=== PATIENT | male | born 2000 | race Caucasian/White ===

== ENCOUNTER 2021-04-26 09:25 | Emergency (ER) | payer OTHER, SELFPAY ==
[2021-04-26 09:53] VITALS: BP 141/83; PULSE 66; RESP 16; TEMP 37.1; O2SAT 99; BMI 31.6
[2021-04-26 10:30] LABS: IDNOW Serial# 08D9AD1C; Strep A Nucleic Acid Negative (Negative)
[2021-04-26 10:31] LABS: COVID-19 Test Negative (Negative)
--- NOTE | 2021-04-26 11:09 | ED.URI ---
HPI - URI/Sore Throat General Chief Complaint: Upper Respiratory Symptoms Stated Complaint: sore throat/ear pain Time Seen by Provider: 04/26/21 11:09 Source: patient Mode of arrival: ambulatory History of Present Illness HPI Narrative: 21-year-old male with no significant past medical history presenting to ED complaining of sore throat and right ear pain yesterday. Denies fever, chills, cough, SOB, CP, recent travel, COVID-19 exposure MD elicited complaint: sore throat and rhinorrhea Onset (ago): day(s) Related Data Previous Rx's Medication Instructions Recorded amoxicillin 875 mg-potassium 1 tab PO Q12H 7 Days #14 tab 04/26/21 clavulanate 125 mg tablet (Augmentin) Allergies Allergy/AdvReac Type Severity Reaction Status Date / Time No Known Allergies Allergy Unverified 02/06/20 16:51 Review of Systems Review of Systems: Constitutional: No Fever, No Chills ENT/Mouth: + Ear Pain, No Nasal Congestion, No Sinus Pain, No Hoarseness, + sore throat, No Rhinorrhea, No Swallowing Difficulty Cardiovascular: No Chest Pain, No SOB Respiratory: No Cough, No Sputum, No Wheezing Gastrointestinal: No Nausea, No Vomiting, No Abdominal pain Genitourinary:No Urinary Frequency, No Hematuria Musculoskeletal: No joint pain, No Myalgias Skin: No Skin Lesions, No rash Neuro: No Weakness Yes all other systems are reviewed and are negative [facility] Past Medical History Attestation statement: The following information was validated with the patient. Medical History No known health problems Social History Social History Advance Directives: No Advance Directives Information Provided: No Physical Exam Vital Signs: Vital Signs: Last Vital Signs Temp 98.7 F 04/26/21 09:53 Pulse 66 04/26/21 09:53 Resp 16 04/26/21 09:53 BP 141/83 H 04/26/21 09:53 Pulse Ox 99 04/26/21 09:53 BMI result Body Mass Index 31.6 Const: General: cooperative, healthy appearing and no acute distress Orientation/consciousness: patient oriented x3 Limitations: no limitations HENMT: Head: Yes normal to inspection Ears: hearing grossly normal bilaterally, external ears normal, TM normal on the left and TM abnormal erythematous on the right General nose exam: Normal external nose present Face and sinus: Yes normal facial exam Mouth: Normal oral and palatal mucosa present Throat: Yes posterior oropharynx normal, Yes tonsils normal, Yes uvula midline and No peritonsillar mass Eyes: General: appearance normal, both eyes and all related structures EOM: EOMs intact bilaterally Neck: Neck: Yes normal visual inspection, Yes full ROM, Yes no lymphadenopathy, Yes no meningeal signs, Yes trachea midline and Yes supple Resp: Effort & Inspection: normal respiratory effort Auscultation: clear to auscultation bilaterally, no rales, no rhonchi and no wheezes Cardio: Rate: regular rate Heart sounds: S1 normal heart sound present and S2 normal heart sound present GI: Inspection: Yes normal to inspection Skin: Rashes: no rashes Wounds: no wounds Neuro: General: patient oriented x3 and no meningeal signs Gait exam (Neuro): Normal gait present Extrem: General: Yes normal to inspection Course Course Course Narrative: -COVID-19 and rapid strep negative MDM - URI/Sore Throat MDM Narrative Medical decision making narrative: 21-year-old male with no significant past medical history presenting to ED complaining of sore throat and right ear pain yesterday. On exam vital signs stable, NAD/nontoxic, right ear TM erythematous, mastoid WNL. Oropharynx WNL. Lungs CTA. Concern for viral syndrome/COVID-19 and early otitis media. Plan: COVID-19 testing, rapid strep, p.o. Augmentin Medical Records Attestation: I reviewed the patient's medical records. Lab Data Attestation: I reviewed the patient's lab results. Labs: Lab Results 04/26/21 04/26/21 Range/Units 09:56 09:56 COVID-19 ([facility]) Negative (Negative) COVID-19 Clin Com See Note S. pyogenes GrpA ELIESER Negative (Negative) Discharge Plan Discharge Clinical Impression: Otitis media Qualifiers: Chronicity: acute Laterality: right Patient Disposition: Home, Self-Care Instructions: Ear Infection (ED) Additional Instructions: You have an early inner ear infection, Augmentin as an antibiotic please take as prescribed. You tested negative for COVID-19, and strep throat Please take Tylenol and Motrin at home as needed Please stay hydrated Breast If symptoms persist or worsen, of fevers unresolved with medications please return to the emergency department Prescriptions: New amoxicillin-pot clavulanate [Augmentin] 875-125 mg tablet 1 tab PO Q12H 7 Days Qty: 14 RF: 0 Referrals: Physician,None [Primary Care Provider] - 3 days Stand Alone Forms: Work/School Release
== END 2021-04-26 11:19 | disposition home or self-care (01) ==
PROVIDERS: Emergency Provider Emergency Medicine
DX: H66.91 Otitis media, unspecified, right ear (principal); Z20.822 Contact with and (suspected) exposure to COVID-19; J02.9 Acute pharyngitis, unspecified
CPT/HCPCS: 36415; 87635; 87651; 99283

== ENCOUNTER 2021-08-22 07:03 | Observation (INO) | payer OTHER, SELFPAY ==
--- NOTE | ~2021-08-22 | CT_ITS ---
EXAMINATION: CT ABDOMEN AND PELVIS WITHOUT CONTRAST CLINICAL INFORMATION: Right lower quadrant pain COMPARISON: None TECHNIQUE: Multidetector volumetric imaging was performed from the superior aspect of the liver through the pubic symphysis. Sagittal and coronal reformatted images were obtained on the technologist's workstation. This CT examination was performed using dose optimization techniques as appropriate, variously including the following: *Automated exposure control *Adjustment of mA and/or kV according to patient size (this includes techniques or standardized protocols for targeted exams where dose is matched to indication/reason for exam; i.e. extremities or head) *Use of iterative reconstruction technique DLP: 754 mGy-cm FINDINGS: LUNG BASES: The visualized lung bases are unremarkable. LIVER, GALLBLADDER, AND BILIARY TREE: Diffusely decreased attenuation of the hepatic parenchyma, with areas of sparing, compatible with hepatic steatosis. No focal hepatic lesion or biliary ductal dilatation is present. The gallbladder is unremarkable with no evidence of radiopaque gallstones, gallbladder wall thickening, or obvious pericholecystic inflammatory changes. PANCREAS: Unremarkable. SPLEEN: Unremarkable. ADRENAL GLANDS: Unremarkable. KIDNEYS AND URETERS: The kidneys are normal in size, shape, and attenuation. No hydronephrosis, hydroureter, or calculi seen. No perinephric stranding. BLADDER: Unremarkable. GASTROINTESTINAL TRACT: The stomach and small bowel are not dilated. No evidence for bowel obstruction. There is an appendicolith at the base of the appendix, however the appendix is normal in caliber without surrounding inflammatory change. No pericolonic inflammatory change. ABDOMINAL WALL: No significant hernia is appreciated. LYMPH NODES: Normal. VASCULAR: Unremarkable. PELVIC VISCERA: Unremarkable. OSSEOUS STRUCTURES: No acute or suspicious osseous abnormality. CT/CT abdomen pelvis wo con IMPRESSION: There is an appendicolith at the base of the appendix, however there is no surrounding inflammatory change and the appendix is normal in caliber. No evidence for bowel obstruction. Hepatic steatosis.
[2021-08-22 07:10] VITALS: BP 147/86; PULSE 104; RESP 16; TEMP 36.4; O2SAT 98; BMI 31.7
--- NOTE | 2021-08-22 08:42 | ED.NAVMDI ---
HPI - Nausea/Vomiting/Diarrhea General Chief complaint: Nausea/Vomiting/Diarrhea Stated complaint: vomiting Time Seen by Provider: 08/22/21 08:38 Source: patient and family (Father) Mode of arrival: ambulatory Limitations: no limitations History of Present Illness HPI Narrative: 21 years old male came in for evaluation of abdominal pain and vomiting. Symptoms started since yesterday, shortly after eating pizza the whole family ate from it but nobody develop any symptoms except the patient, patient has been having abdominal pain mostly epigastric then followed by nausea and vomiting, patient also had 1 time loose stool bowel movement but no lashell diarrhea, patient is been with normal appetite but unable to to eat due to nausea and vomiting. Has no fever or chills. Pain is more diffuse this morning and feels pain in the lower abdomen both right and left sides. No aggravating factor, no relieving factor. Patient has no surgical abdominal history in the past. No sick contact, no recent travel. Never had a history of abdominal pain in the past. Related Data Previous Rx's Medication Instructions Recorded amoxicillin 875 mg-potassium 1 tab PO Q12H 7 Days #14 tab 04/26/21 clavulanate 125 mg tablet (Augmentin) Allergies Allergy/AdvReac Type Severity Reaction Status Date / Time No Known Allergies Allergy Unverified 08/22/21 07:13 Review of Systems Review of Systems: All other systems are reviewed and are negative Constitutional: Reports as per HPI and Reports no additional constitutional complaints Eyes: Reports as per HPI and Reports no additional eye complaints Reports system reviewed and no additional complaints, except as documented Cardiovascular: Reports as per HPI and Reports no additional cardiovascular complaints Respiratory: Reports as per HPI and Reports no additional respiratory complaints Gastrointestinal: Reports as per HPI and Reports no additional gastrointestinal complaints Genitourinary: Reports no additional female genitourinary complaints Musculoskeletal: Reports no additional musculoskeletal complaints Skin/Breast: Reports system reviewed and no additional complaints, except as docu Psychiatric: Reports no additional psychiatric complaints Endocrine: Reports no additional endocrine complaints Hematologic/Lymphatic: Reports no additional hematologic/lymphatic complaints Allergic/Immunologic: Reports no additional allergic/immunologic complaints Reports system reviewed and no additional complaints, except as documented and Reports Abnormal speech present PMFSH Past Medical History Medical History No known health problems Social History Social History Advance Directives: No Advance Directives Information Provided: No Physical Exam Vital Signs: Vital Signs: Last Vital Signs Temp 97.5 F 08/22/21 07:10 Pulse 104 H 08/22/21 07:10 Resp 16 08/22/21 07:10 BP 147/86 H 08/22/21 07:10 Pulse Ox 98 08/22/21 07:10 BMI result Body Mass Index 31.7 Vital signs have been reviewed as appeared to be correct. Blood pressure normal. Heart rate elevated. Respiration rate normal. Temperature normal. Oxygen saturation normal. Appearance: Alert. Oriented X3. No acute distress. Head: Normal external exam. Normocephalic. Atraumatic. No Wade signs noted. No raccoon eyes noted Eyes: PERRLA. EOMI. Conjunctiva and sclera normal. Eyelids normal. ENT: TM's Normal. Pharynx normal. Uvula midline. Moist mucous membranes. No trismus noted. No drooling noted. No muffled voice noted. Neck: Normal inspection. Neck supple. FROM. No adenopathy. Thyroid Normal. No meningeal signs. No neck mass noted. CVS: Normal heart rate and rhythm. Heart sound normal. No murmurs noted. Pulses normal throughout. Respiratory: No respiratory distress. Painless inspiration. Breath sounds normal. No wheezes/rales/rhonchi noted. Chest nontender. No accessory muscle usage noted or decreased air movement noted. Abdomen: Soft, epigastric tenderness, right and left lower quadrant tenderness, no rebound, no guarding. Bowel sounds normal in all 4 quadrants. No distention noted. No organomegaly noted. No visible injury noted. Back: No CVA tenderness. Full range of motion noted. Skin: Skin warm and dry. Normal skin color. Normal skin turgor. No rashes/lesions/lacerations noted. Extremities: No lower extremity edema. Extremities exhibit normal range of motion. Extremities nontender. Neuro: Oriented X 3. Cranial nerve exam: II-XII are grossly intact No motor deficit. No sensory deficit. Reflexes normal. Course Course Course Narrative: Assessment and plan. 21-year-old male came in with lower abdominal pain nausea vomiting, has leukocytosis, CT revealed appendicolith in the appendix but otherwise normal size appendix, surgical consultation by Dr. Rowley was obtained in the emergency department recommended to keep the patient overnight for observation and for serial abdominal exam. MDM - Nausea/Vomiting/Diarrhea Lab Data Attestation: I reviewed the patient's lab results. Result diagrams: 08/22/21 08:51 08/22/21 08:51 Labs: Lab Results 08/22/21 08/22/21 Range/Units 08:51 08:51 WBC 12.4 H (4.8-10.8) X10*3/uL RBC 5.76 (4.60-5.80) X10*6/uL Hgb 15.5 (14.0-18.0) g/dl Hct 46.9 (42.0-52.0) % MCV 81.4 (80.0-98.0) fL MCH 26.9 L (27.0-33.0) pg MCHC 33.0 (31.0-36.0) g/dl RDW 13.6 (11.0-16.0) % Plt Count 334 (160-400) X10*3/uL MPV 10.0 (9.4-12.4) fL Immature Gran % (Auto) 0.2 (0.0-0.4) % Neut % (Auto) 91.7 H (45-73) % Lymph % (Auto) 2.4 L (20-40) % [place] % (Auto) 5.5 (2-11) % Eos % (Auto) 0.1 (0-4) % Baso % (Auto) 0.1 (0-2) % Lymph # (Auto) 0.3 L (1.2-4.9) X10*3/uL [place] # (Auto) 0.7 (0.1-1.2) X10*3/uL Eos # (Auto) 0.0 (0.0-0.4) X10*3/uL Baso # (Auto) 0.0 (0.0-0.2) X10*3/uL Abs Immat Gran (auto) 0.03 (0.00-0.03) X10*3/uL Absolute Neuts (auto) 11.3 H (2.0-8.3) x10*3/uL Absolute Nucleated RBC 0.000 (0.0-0.012) X10*3/uL Nucleated RBC % (auto) 0.0 (0.0-0.2) /100WBC Smear Tech's Comments VERIFIED Sodium 141 (135-145) mmol/L Potassium 4.3 (3.3-5.1) mmol/L Chloride 105 (96-108) mmol/L Carbon Dioxide 26 (22-29) mmol/L Anion Gap 14 (12-20) BUN 15 (9-16) mg/dL Creatinine 0.84 (0.5-1.4) mg/dL Estim Creat Clear Calc 160.2 Estimated GFR > 60 Random Glucose 117 H (60-115) mg/dL Calcium 10.3 H (8.4-10.2) mg/dL Total Bilirubin 0.7 (0.0-1.0) mg/dL Direct Bilirubin 0.3 (0.0-0.5) mg/dL AST 17 (5-37) U/L ALT 42 H (0-40) U/L Alkaline Phosphatase 49 (39-117) U/L Total Protein 7.7 (6.5-8.0) g/dL Albumin 4.9 (3.5-5.0) g/dL Lipase 12 (8-78) U/L Imaging Data Abdomen and pelvis CT: Attestation: I personally reviewed and interpreted this imaging study as follows: Radiologist's impression: There is an appendicolith at the base of the appendix, however there is no surrounding inflammatory change and the appendix is normal in caliber. No evidence for bowel obstruction. ? Hepatic steatosis.? ? Discharge Plan Discharge Clinical Impression: Abdominal pain, Appendicolith Patient Disposition: Admitted As Inpatient Prescriptions: No Action amoxicillin-pot clavulanate [Augmentin] 875-125 mg tablet 1 tab PO Q12H 7 Days Qty: 14 0RF
[2021-08-22 08:56] LABS: Basophils Percent Auto 0.1 % (0-2); Eosinophils Percent Auto 0.1 % (0-4); Hematocrit 46.9 % (42.0-52.0); Hemoglobin 15.5 g/dl (14.0-18.0); Imm Gran Abs Auto 0.03 X10*3/uL (0.00-0.03); Imm Gran Pct Auto 0.2 % (0.0-0.4); Lymphocytes Absolute Auto 0.3 X10*3/uL (1.2-4.9); Lymphocytes Percent Auto 2.4 % (20-40); MANUAL DIFF FLAG SCAN; Mean Corpuscular Hemoglobin 26.9 pg (27.0-33.0); Mean Corpuscular Volume 81.4 fL (80.0-98.0); Monocytes Absolute Auto 0.7 X10*3/uL (0.1-1.2); Monocytes Percent Auto 5.5 % (2-11); Neutrophils Absolute Auto 11.3 x10*3/uL (2.0-8.3); Neutrophils Percent Auto 91.7 % (45-73); Platelet Count 334 X10*3/uL (160-400); Red Blood Count 5.76 X10*6/uL (4.60-5.80); Red Cell Distribution Width 13.6 % (11.0-16.0); SCAN SMEAR FLAG 1; White Blood Count 12.4 X10*3/uL (4.8-10.8)
[2021-08-22 09:12] LABS: Alanine Aminotransferase 42 U/L (0-40); Albumin Level 4.9 g/dL (3.5-5.0); Alkaline Phosphatase 49 U/L (39-117); Anion Gap 14 (12-20); Aspartate Amino Transferase 17 U/L (5-37); Bilirubin Direct 0.3 mg/dL (0.0-0.5); Bilirubin Total 0.7 mg/dL (0.0-1.0); Blood Urea Nitrogen 15 mg/dL (9-16); Calcium 10.3 mg/dL (8.4-10.2); Carbon Dioxide 26 mmol/L (22-29); Chloride 105 mmol/L (96-108); Creatinine Clr Calc Pharmacy 160.2; Estimated Glomerular Filt Rate > 60; Glucose Random 117 mg/dL (60-115); Lipase 12 U/L (8-78); Potassium 4.3 mmol/L (3.3-5.1); Sodium 141 mmol/L (135-145); Total Protein 7.7 g/dL (6.5-8.0)
[2021-08-22 09:13] LABS: SLIDE REVIEW VERIFIED
[2021-08-22] MEDS: 0.9 % Sodium Chloride 1,000 ML 999 ML IV (09:18)
[2021-08-22] MEDS: Famotidine/PF 20 MG/2 ML VIAL IVPUSH (09:18)
[2021-08-22] MEDS: ondansetron HCL 4 MG/2 ML VIAL IVPUSH ×2 (09:18→13:52)
[2021-08-22] MEDS: Magnesium Hydrox/Alum Hydrox 30 ML ORAL.SUSP PO (09:18)
--- NOTE | 2021-08-22 11:46 | PM.HPGS ---
History of Present Illness History of Present Illness Date of Service: 08/23/21 Chief complaint: Abdominal Pain Narrative: Paddy Sampson is a 21 year old male who came to the ED this morning because of abdominal pain. He descibes having vague abdominal pain starting around 9 pm last night. This was described as mostly around the mid abdomen,although he says he felt this to be on the lower abdomen this morning. He describes somenausea and vomitting overnight. He says he had pizza with the family last night,but no one else became sick. He describes some loose stools. He says the pain is mild. Review of Systems Constitutional: Constitutional: Denies chills and Denies fever(s) Cardiovascular: Cardiovascular: Denies chest pain, Denies dyspnea and Denies dyspnea on exertion Respiratory: Respiratory: Denies cough, Denies dyspnea and Denies dyspnea on exertion Gastrointestinal: Gastrointestinal: Denies hematochezia and Denies change in bowel habits Genitourinary: Genitourinary: Denies hematuria and Denies difficulty urinating Musculoskeletal: Musculoskeletal: Denies back pain and Denies limited range of motion Neurologic: Denies focal weakness and Denies convulsions Psychiatric: Psychiatric: Denies depression and Denies mood swings PMFSH Past Medical History Medical History No known health problems Meds Allergies Allergy/AdvReac Type Severity Reaction Status Date / Time No Known Allergies Allergy Unverified 08/22/21 07:13 Home Medications Medication Instructions Recorded Confirmed Last Taken Type No Known Home Meds 08/22/21 08/22/21 Unknown History Physical Exam Vital Signs: Vital Signs: Last Vital Signs Temp 97.5 F 08/22/21 07:10 Pulse 104 H 08/22/21 07:10 Resp 16 08/22/21 07:10 BP 147/86 H 08/22/21 07:10 Pulse Ox 98 08/22/21 07:10 BMI result Body Mass Index 31.7 Const: General: comfortable and no acute distress Orientation/consciousness: patient oriented x3 Neck: Neck: Yes no lymphadenopathy Resp: Auscultation: clear to auscultation bilaterally Cardio: Rhythm: regular rhythm GI: Palpation (GI): Soft to palpation, Tenderness to palpation present (GI) (mildly tender on lower abdomen along midline) and no guarding Neuro: General: patient oriented x3 Results Results Labs: Short CBC 08/22/21 Range/Units 08:51 WBC 12.4 H (4.8-10.8) X10*3/uL Hgb 15.5 (14.0-18.0) g/dl Hct 46.9 (42.0-52.0) % Plt Count 334 (160-400) X10*3/uL BMP 08/22/21 08:51 Sodium 141 Potassium 4.3 Chloride 105 Carbon Dioxide 26 BUN 15 Creatinine 0.84 Calcium 10.3 H Liver Function 08/22/21 Range/Units 08:51 Total Bilirubin 0.7 (0.0-1.0) mg/dL Direct Bilirubin 0.3 (0.0-0.5) mg/dL AST 17 (5-37) U/L ALT 42 H (0-40) U/L Alkaline Phosphatase 49 (39-117) U/L Albumin 4.9 (3.5-5.0) g/dL Abdomen CT scan report/results: report reviewed CT scan - pelvis: report reviewed and image reviewed Assessment and Plan (1) Abdominal pain: Status: Acute He has very mild pain and tenderness on exam,mosttlyon the midlower abdomen. His CT shows what appears to be an appendicolith without any inflammatory changes in the appendix.Clinically,the suspicion for acute appendicitis is quite low. However, he does have some mildly elevated leukocytosis,and with his appendicoplith,I will admit him for observation. I will do serial exams and repeat his CBC in am. He willbe kept on clear liquids. I will not start IV abx. Quality Stroke Does the patient have a stroke diagnosis?: No VTE Prior VTE?: No VTE Risk Level:: Medical - low VTE Device Contraindication: Treatment Not Indicated VTE Drug Contraindication: Treatment Not Indicated Procedures Date of Service Date of Service: 08/22/21
[2021-08-22 12:02] LABS: Appearance Urine CLEAR; Color Urine YELLOW; Glucose Urine UA NEG (NEG); Leukocyte Esterase Urine NEG (NEG); Nitrite Urine NEG (NEG); PH 6.5 (5.0-8.0); Urine Blood NEG (NEG); Urine Ketones NEG (NEG); Urine Protein NEG (NEG-TRACE)
[2021-08-22] MEDS: 0.9 % Sodium Chloride 1,000 ML 100 ML IVCONT (12:28)
--- NOTE | 2021-08-22 15:21 | PM.EVENT ---
Event Note Date of Service: 08/22/21 Event Note: c/o nausea some lower abdomen pain loose stools abd remains soft, no guarding or rebound keep on clears repeat CBC tomorrow possible enteritis, appendicitis not likely exam benign
[2021-08-22 18:03] VITALS: BP 127/56; PULSE 98; RESP 20; TEMP 38.2; O2SAT 97
[2021-08-22 20:18] LABS: COVID-19 Test Negative (Negative); IDNOW Serial# 16C4AD1C
[2021-08-22 22:01] VITALS: BP 129/61; PULSE 100; RESP 18; TEMP 37.3; O2SAT 99
[2021-08-23] MEDS: 0.9 % Sodium Chloride 1,000 ML 100 ML IVCONT (03:07)
[2021-08-23] MEDS: 0.9 % Sodium Chloride Flush 3 ML SYRINGE IVFLUSH (03:10)
[2021-08-23 06:17] VITALS: BP 126/72; PULSE 82; RESP 20; O2SAT 96
[2021-08-23 06:47] LABS: Hematocrit 41.9 % (42.0-52.0); Mean Corpuscular HGB Conc 33.4 g/dl (31.0-36.0); Mean Corpuscular Hemoglobin 27.2 pg (27.0-33.0); Mean Corpuscular Volume 81.4 fL (80.0-98.0); Mean Platelet Volume 10.5 fL (9.4-12.4); Platelet Count 270 X10*3/uL (160-400); Red Blood Count 5.15 X10*6/uL (4.60-5.80); Red Cell Distribution Width 13.5 % (11.0-16.0); White Blood Count 5.8 X10*3/uL (4.8-10.8)
[2021-08-23 07:38] VITALS: BP 127/79; PULSE 80; RESP 16; O2SAT 97
--- NOTE | 2021-08-23 07:46 | P.PNGS_ITS ---
Subjective Subjective Date of Service: 08/23/21 Interval history: says he feels well abdl pain completely resolved no n/v no diarrhea Physical Exam Vital Signs: Vital Signs: Last Vital Signs Temp 99.1 F 08/22/21 22:01 Pulse 80 08/23/21 07:38 Resp 16 08/23/21 07:38 BP 127/79 08/23/21 07:38 Pulse Ox 97 08/23/21 07:38 BMI result Body Mass Index 31.7 Const: General: comfortable and no acute distress Resp: Effort & Inspection: normal respiratory effort Cardio: Rate: regular rate GI: Palpation (GI): Soft to palpation, not firm, nontender and no guarding Objective Data Active Medications Sodium Chloride (Ns) 1,000 mls @ 100 mls/hr IVCONT .Q10H [facility] Last Admin: 08/23/21 03:07 Dose: 100 mls/hr Documented by: YAKOV Morphine Sulfate (Morphine Sulfate 2 Mg/Ml Cartridge) 2 mg IVPUSH Q4H PRN; Protocol PRN Reason: Pain, Severe (Pain Scale 7-10) Ondansetron HCl (Ondansetron Hcl 4 Mg/2 Ml Vial) 4 mg IVPUSH Q8H PRN PRN Reason: nausea Sodium Chloride (0.9 % Sodium Chloride Flush 3 Ml Syringe) 3 ml IVFLUSH QSHIFT [facility] Last Admin: 08/23/21 07:42 Dose: Not Given Documented by: MARK Non-Admin Reason: IV Running Labs CBC & Chem 7: 08/23/21 06:13 08/22/21 08:51 Labs: Laboratory Results - last 24 hr 08/22/21 08/22/21 08/22/21 08:51 08:51 11:56 MCV 81.4 MCH 26.9 L MCHC 33.0 RDW 13.6 Plt Count 334 MPV 10.0 Immature Gran % (Auto) 0.2 Neut % (Auto) 91.7 H Lymph % (Auto) 2.4 L [place] % (Auto) 5.5 Eos % (Auto) 0.1 Baso % (Auto) 0.1 Lymph # (Auto) 0.3 L [place] # (Auto) 0.7 Eos # (Auto) 0.0 Baso # (Auto) 0.0 Abs Immat Gran (auto) 0.03 Absolute Neuts (auto) 11.3 H Absolute Nucleated RBC 0.000 Nucleated RBC % (auto) 0.0 Smear Tech's Comments VERIFIED Anion Gap 14 Estim Creat Clear Calc 160.2 Estimated GFR > 60 Random Glucose 117 H Calcium 10.3 H Total Bilirubin 0.7 Direct Bilirubin 0.3 AST 17 ALT 42 H Alkaline Phosphatase 49 Total Protein 7.7 Albumin 4.9 Lipase 12 Urine Color YELLOW Urine Appearance CLEAR Urine pH 6.5 Ur Specific [place] 1.020 Urine Protein NEG Urine Glucose (UA) NEG Urine Ketones NEG Urine Blood NEG Urine Nitrite NEG Ur Leukocyte Esterase NEG COVID-19 ([facility]) COVID-19 Clin Com 08/22/21 08/23/21 19:57 06:13 MCV 81.4 MCH 27.2 MCHC 33.4 RDW 13.5 Plt Count 270 MPV 10.5 Immature Gran % (Auto) Neut % (Auto) Lymph % (Auto) [place] % (Auto) Eos % (Auto) Baso % (Auto) Lymph # (Auto) [place] # (Auto) Eos # (Auto) Baso # (Auto) Abs Immat Gran (auto) Absolute Neuts (auto) Absolute Nucleated RBC 0.000 Nucleated RBC % (auto) 0.0 Smear Tech's Comments Anion Gap Estim Creat Clear Calc Estimated GFR Random Glucose Calcium Total Bilirubin Direct Bilirubin AST ALT Alkaline Phosphatase Total Protein Albumin Lipase Urine Color Urine Appearance Urine pH Ur Specific [place] Urine Protein Urine Glucose (UA) Urine Ketones Urine Blood Urine Nitrite Ur Leukocyte Esterase COVID-19 ([facility]) Negative COVID-19 Clin Com See Note Procedures Date of Service Date of Service: 08/23/21 Progress Note: A&P Assessment and plan (1) Abdominal pain: Status: Acute Assessment and Plan: symptoms completely resolved no tenderness no fever WBC normal regular diet ok to ma home likely had gastroenteritis has appendicolith - at risk for appendicitis in future Fall Risk Details Current Medications: Current Medications Sodium Chloride (Ns) 1,000 mls @ 100 mls/hr IVCONT .Q10H [facility] Last Admin: 08/23/21 03:07 Dose: 100 mls/hr Documented by: Morphine Sulfate (Morphine Sulfate 2 Mg/Ml Cartridge) 2 mg IVPUSH Q4H PRN; Protocol PRN Reason: Pain, Severe (Pain Scale 7-10) Ondansetron HCl (Ondansetron Hcl 4 Mg/2 Ml Vial) 4 mg IVPUSH Q8H PRN PRN Reason: nausea Sodium Chloride (0.9 % Sodium Chloride Flush 3 Ml Syringe) 3 ml IVFLUSH QSHIFT [facility] Last Admin: 08/23/21 07:42 Dose: Not Given Documented by: Time Spent With Patient Time: Total time spent is greater than 50% in coordination of care (as documented) at patient's floor/unit and/or counseling patient: Quality Stroke Does the patient have a stroke diagnosis?: No VTE Prior VTE?: No VTE Risk Level:: Medical - low VTE Device Contraindication: Treatment Not Indicated VTE Drug Contraindication: Treatment Not Indicated
--- NOTE | 2021-08-23 08:03 | PC.NURSE ---
PT AWAKE, ALERT AND ORIENTED X 3. SKIN WARM AND DRY. RESP UNLABORED. DENIES N/V. NO C/O PAIN. PLAN WAS FOR ADMISSION HOWEVER DR HALL IN TO SEE PATIENT AND WANTS TO DC HOME IF HE CAN TOLERATE AN ADVANCED DIET. PT AGREEABLE TO PLAN. TOAST MADE FOR PATIENT. WILL EVAL TO SEE HOW HE DOES
--- NOTE | 2021-08-24 15:05 | P.DS_ITS ---
DS: Providers Provider Date of Service: 08/23/21 Date of admission: 08/22/21 11:54 Primary care physician: None Physician DS: Diagnosis Discharge Diagnosis (1) Abdominal pain: Status: Acute DS: Summary Hospital Course Hospital Course: 21-year-old male admitted because of abdominal pain with vomiting. He had a CAT scan showing an appendicoliths without inflammatory changes in the appendix. He did have some leukocytosis who is admitted for observation. He was kept NPO with IV fluids. He has pain had improved overnight during his admission. Repeat exam the following day did not reveal any significant tenderness nor pain. His leukocytosis went down to normal. Overall clinical findings consistent with acute appendicitis. Furthermore, most likely doses was gastroenteritis He had remained afebrile during his hospital stay. Time Spent with Patient Time attestation: Total time spent providing and/or coordinating discharge services: Discharge coordination time: Less than 30 minutes Quality: Safe Use of Opioids Does Pt have an Active Cancer Diagnosis on the Problem List?: No Quality: Stroke Does the patient have a stroke diagnosis?: No Physical Exam Vital Signs: Vital Signs: Last Vital Signs Temp 99.1 F 08/22/21 22:01 Pulse 80 08/23/21 07:38 Resp 16 08/23/21 07:38 BP 127/79 08/23/21 07:38 Pulse Ox 97 08/23/21 07:38 BMI result Body Mass Index 31.7 Const: General: comfortable and no acute distress Orientation/consciousness: patient oriented x3 Neck: Neck: Yes no lymphadenopathy Resp: Auscultation: clear to auscultation bilaterally Cardio: Rhythm: regular rhythm GI: Palpation (GI): Soft to palpation, nontender and no guarding Neuro: General: patient oriented x3 DS: Data Data Completed and Pending Completed studies during hospitalization [Text1]: Laboratory Results WBC 5.8 X10*3/uL (4.8-10.8) 08/23/21 06:13 RBC 5.15 X10*6/uL (4.60-5.80) 08/23/21 06:13 Hgb 14.0 g/dl (14.0-18.0) 08/23/21 06:13 Hct 41.9 % (42.0-52.0) L 08/23/21 06:13 MCV 81.4 fL (80.0-98.0) 08/23/21 06:13 MCH 27.2 pg (27.0-33.0) 08/23/21 06:13 MCHC 33.4 g/dl (31.0-36.0) 08/23/21 06:13 RDW 13.5 % (11.0-16.0) 08/23/21 06:13 Plt Count 270 X10*3/uL (160-400) 08/23/21 06:13 MPV 10.5 fL (9.4-12.4) 08/23/21 06:13 Immature Gran % (Auto) 0.2 % (0.0-0.4) 08/22/21 08:51 Neut % (Auto) 91.7 % (45-73) H 08/22/21 08:51 Lymph % (Auto) 2.4 % (20-40) L 08/22/21 08:51 [place] % (Auto) 5.5 % (2-11) 08/22/21 08:51 Eos % (Auto) 0.1 % (0-4) 08/22/21 08:51 Baso % (Auto) 0.1 % (0-2) 08/22/21 08:51 Lymph # (Auto) 0.3 X10*3/uL (1.2-4.9) L 08/22/21 08:51 [place] # (Auto) 0.7 X10*3/uL (0.1-1.2) 08/22/21 08:51 Eos # (Auto) 0.0 X10*3/uL (0.0-0.4) 08/22/21 08:51 Baso # (Auto) 0.0 X10*3/uL (0.0-0.2) 08/22/21 08:51 Abs Immat Gran (auto) 0.03 X10*3/uL (0.00-0.03) 08/22/21 08:51 Absolute Neuts (auto) 11.3 x10*3/uL (2.0-8.3) H 08/22/21 08:51 Absolute Nucleated RBC 0.000 X10*3/uL (0.0-0.012) 08/23/21 06:13 Nucleated RBC % (auto) 0.0 /100WBC (0.0-0.2) 08/23/21 06:13 Smear Tech's Comments VERIFIED 08/22/21 08:51 Sodium 141 mmol/L (135-145) 08/22/21 08:51 Potassium 4.3 mmol/L (3.3-5.1) 08/22/21 08:51 Chloride 105 mmol/L (96-108) 08/22/21 08:51 Carbon Dioxide 26 mmol/L (22-29) 08/22/21 08:51 Anion Gap 14 (12-20) 08/22/21 08:51 BUN 15 mg/dL (9-16) 08/22/21 08:51 Creatinine 0.84 mg/dL (0.5-1.4) 08/22/21 08:51 Estim Creat Clear Calc 160.2 08/22/21 08:51 Estimated GFR > 60 08/22/21 08:51 Random Glucose 117 mg/dL (60-115) H 08/22/21 08:51 Calcium 10.3 mg/dL (8.4-10.2) H 08/22/21 08:51 Total Bilirubin 0.7 mg/dL (0.0-1.0) 08/22/21 08:51 Direct Bilirubin 0.3 mg/dL (0.0-0.5) 08/22/21 08:51 AST 17 U/L (5-37) 08/22/21 08:51 ALT 42 U/L (0-40) H 08/22/21 08:51 Alkaline Phosphatase 49 U/L (39-117) 08/22/21 08:51 Total Protein 7.7 g/dL (6.5-8.0) 08/22/21 08:51 Albumin 4.9 g/dL (3.5-5.0) 08/22/21 08:51 Lipase 12 U/L (8-78) 08/22/21 08:51 Urine Color YELLOW 08/22/21 11:56 Urine Appearance CLEAR 08/22/21 11:56 Urine pH 6.5 (5.0-8.0) 08/22/21 11:56 Ur Specific [place] 1.020 (1.005-1.025) 08/22/21 11:56 Urine Protein NEG MG/DL (NEG-TRACE) 08/22/21 11:56 Urine Glucose (UA) NEG MG/DL (NEG) 08/22/21 11:56 Urine Ketones NEG MG/DL (NEG) 08/22/21 11:56 Urine Blood NEG (NEG) 08/22/21 11:56 Urine Nitrite NEG (NEG) 08/22/21 11:56 Ur Leukocyte Esterase NEG (NEG) 08/22/21 11:56 COVID-19 ([facility]) Negative (Negative) 08/22/21 19:57 COVID-19 Clin Com See Note 08/22/21 19:57 Impressions Abdomen/Pelvis CT 08/22/21 09:11 IMPRESSION: There is an appendicolith at the base of the appendix, however there is no surrounding inflammatory change and the appendix is normal in caliber. No evidence for bowel obstruction. Hepatic steatosis. Discharge Plan Discharge Patient Disposition: Home, Self-Care Referrals: Physician,None [Primary Care Provider] - 1 Week Discharge Medications: No Action No Known Home Meds 0RF Discharge Orders: Discharge Order (Routine); Ordered 08/23/21 Ordered By: Marla Mustafa Activity on Discharge: As tolerated Stand Alone Forms: Patient Portal Discharge page Care Plan Goals: no further surgical ffup needed at this time Health Concerns: has appendicolith - may be at risk for appendicitis in future Plan of Treatment: ffup with PCP Assessment: doing well Discharge Date/Time: 08/23/21 09:07
== END 2021-08-23 09:07 | disposition home or self-care (01) ==
LOC: HO.ED 11:46 → HO.EDOVER 11:59 → HO.IMC 08-23 07:36 → HO.EDOVER 08-23 08:45
PROVIDERS: Admitting Provider Surgery; Emergency Provider Emergency Medicine; Visit Provider Surgery
DX: R10.31 Right lower quadrant pain (principal); R10.32 Left lower quadrant pain; R10.13 Epigastric pain; R11.2 Nausea with vomiting, unspecified; D72.829 Elevated white blood cell count, unspecified; K38.1 Appendicular concretions; K52.9 Noninfective gastroenteritis and colitis, unspecified; K76.0 Fatty (change of) liver, not elsewhere classified; Z20.822 Contact with and (suspected) exposure to COVID-19; Z79.899 Other long term (current) drug therapy
CPT/HCPCS: 36415; 74176; 80048; 80076; 81003; 83690; 85025; 85027; 87635; 96361; 96374; 96375; 96376; 99219; 99284; 99285; J2405

== ENCOUNTER 2022-09-01 04:19 | Emergency (ER) | payer MEDICAID, SELFPAY ==
--- NOTE | ~2022-09-01 | CT_ITS ---
EXAMINATION: CT ABDOMEN AND PELVIS WITH CONTRAST CLINICAL INFORMATION: Right lower quadrant pain and vomiting. COMPARISON: 08/22/2021 TECHNIQUE: Multidetector volumetric images were obtained from the superior aspect of the liver through the pubic symphysis following administration 85 mL of Omnipaque 350 intravenous contrast. Sagittal and coronal reformatted images were obtained on the technologist's workstation. Oral contrast: No This CT examination was performed using dose optimization techniques as appropriate, variously including the following: *Automated exposure control *Adjustment of mA and/or kV according to patient size (this includes techniques or standardized protocols for targeted exams where dose is matched to indication/reason for exam; i.e. extremities or head) *Use of iterative reconstruction technique DLP: 625 mGy-cm FINDINGS: LUNG BASES: The visualized lung bases are unremarkable. LIVER, GALLBLADDER, AND BILIARY TREE: The liver is normal in size, shape, and attenuation. No focal hepatic lesion or biliary ductal dilatation is present. The gallbladder is unremarkable with no evidence of radiopaque gallstones, gallbladder wall thickening, or obvious pericholecystic inflammatory changes. PANCREAS: Unremarkable. SPLEEN: Unremarkable. ADRENAL GLANDS: Unremarkable. KIDNEYS AND URETERS: The kidneys are normal in size, shape, and attenuation. No hydronephrosis, hydroureter, or calculi seen. No perinephric stranding. BLADDER: Unremarkable. GASTROINTESTINAL TRACT: Scattered sigmoid colonic diverticula. No evidence of diverticulitis. Normal appendix. Stomach and small bowel unremarkable. ABDOMINAL WALL: No significant hernia is appreciated. LYMPH NODES: Normal. VASCULAR: Unremarkable. PELVIC VISCERA: Unremarkable. OSSEOUS STRUCTURES: Unremarkable. CT/CT abdomen pelvis w IV con IMPRESSION: * Normal appendix. * No potential etiology for the patient's symptomatology is identified within the abdomen or pelvis. * Scattered sigmoid colonic diverticula without evidence of diverticulitis. This result was discussed with Dr Wisdom at 09/01/2022 6:03 AM and it was ascertained that the content and urgency of the report was understood at the time of direct communication.
[2022-09-01 04:30] VITALS: BP 157/72; PULSE 82; RESP 16; TEMP 37.2; O2SAT 96; BMI 30.5
--- NOTE | 2022-09-01 04:39 | ECG_ITS ---
Test Reason : NAUSEA/VOMITTING Blood Pressure : / mmHG Vent. Rate : 071 BPM Atrial Rate : 071 BPM P-R Int : 140 ms QRS Dur : 088 ms QT Int : 348 ms P-R-T Axes : 032 030 001 degrees QTc Int : 378 ms Normal sinus rhythm Normal ECG No previous ECGs available Referred By: Generic ED Physician Electronically Signed By:ANSELMO PANDA MD
[2022-09-01 04:50] LABS: MANUAL DIFF FLAG NO
[2022-09-01 04:51] LABS: Basophils Percent Auto 0.1 % (0-2); Eosinophils Absolute Auto 0.1 X10*3/uL (0.0-0.4); Eosinophils Percent Auto 0.5 % (0-4); Hematocrit 45.3 % (42.0-52.0); Hemoglobin 15.1 g/dl (14.0-18.0); Imm Gran Abs Auto 0.03 X10*3/uL (0.00-0.03); Imm Gran Pct Auto 0.3 % (0.0-0.4); Lymphocytes Absolute Auto 0.9 X10*3/uL (1.2-4.9); Lymphocytes Percent Auto 9.8 % (20-40); Mean Corpuscular HGB Conc 33.3 g/dl (31.0-36.0); Mean Corpuscular Hemoglobin 26.7 pg (27.0-33.0); Mean Platelet Volume 10.2 fL (9.4-12.4); Monocytes Absolute Auto 0.7 X10*3/uL (0.1-1.2); Monocytes Percent Auto 7.6 % (2-11); Neutrophils Absolute Auto 7.8 x10*3/uL (2.0-8.3); Neutrophils Percent Auto 81.7 % (45-73); Platelet Count 294 X10*3/uL (160-400); Red Blood Count 5.66 X10*6/uL (4.60-5.80); Red Cell Distribution Width 13.3 % (11.0-16.0); White Blood Count 9.5 X10*3/uL (4.8-10.8)
--- NOTE | 2022-09-01 05:01 | ED_ITS ---
HPI - Nausea/Vomiting/Diarrhea General Chief complaint: Nausea/Vomiting/Diarrhea Stated complaint: vomiting, abd pain, SoB Time Seen by Provider: 09/01/22 04:46 Source: patient Mode of arrival: ambulatory Limitations: no limitations History of Present Illness HPI Narrative: Patient with no significant past medical history did not have a his supper last ate at 18 feel hungry went to bed woke up at 02:30 a.m. with upper abdominal pain vomited 4 or 5 times now complaining of discomfort in lower abdomen no fever no chills no diarrhea no other family member sick Related Data Home Medications Medication Instructions Recorded Confirmed No Known Home Meds 08/22/21 08/22/21 Allergies Allergy/AdvReac Type Severity Reaction Status Date / Time No Known Allergies Allergy Unverified 08/22/21 07:13 Review of Systems Review of Systems: Yes all other systems are reviewed and are negative [facility] Past Medical History Medical History No known health problems Social History Social History Advance Directives: No Advance Directives Information Provided: Yes Physical Exam Vital Signs: Vital Signs: Last Vital Signs Temp 99 F 09/01/22 05:57 Pulse 64 09/01/22 05:57 Resp 19 09/01/22 05:57 BP 138/72 09/01/22 05:57 Pulse Ox 97 09/01/22 05:57 O2 Del Method Room Air 09/01/22 05:57 BMI result Body Mass Index 30.5 Appearance: Alert. Oriented X3. No acute distress. Eyes: No pallor or icterus ENT: Pharynx normal. Oral Mucosa moist Neck: Normal inspection. Neck supple. CVS: Normal heart rate and rhythm. Pulses normal. Respiratory: No respiratory distress. Equal air entry bilateral, no wh eezing/rales/rhonchi Abdomen: Soft , deep tenderness right lower quadrant and epigastric area no re bound tenderness or guarding. Bowel sounds are present, no mass palpable, no CVA tenderness Skin: Skin warm and dry. Normal skin color. Normal skin turgor. Extremities: No lower extremity edema. No calf tenderness Neuro: Oriented X 3. No motor deficit. Medications Administered Discontinued Medications Generic Name Dose Route Start Last Admin Trade Name Freq PRN Reason Stop Dose Admin Sodium Chloride 1,000 mls @ 999 mls/hr 09/01/22 05:14 09/01/22 05:23 Ns IV 09/01/22 06:14 999 mls/hr .Q1H1M ONE Administration Iohexol 85 ml 09/01/22 05:39 09/01/22 05:39 Iohexol 350 Mg/Ml 100 Ml Infus..Btl IV 09/01/22 05:40 85 ml ONCE ONE Administration Ondansetron HCl 4 mg 09/01/22 05:14 09/01/22 05:23 Ondansetron Hcl 4 Mg/2 Ml Vial IVPUSH 09/01/22 05:15 4 mg ONCE ONE Administration Medical Decision Making Medical Decision Making [facility] Narrative: Patient with acute nausea vomiting on exam he has slight discomfort in right lower quadrant WBC count normal will do CT rule out appendicitis 6 am patient feeling much better now taking p.o. fluids workup negative CT scan negative for appendicitis Lab Data [facility] Lab Attestation statement: I reviewed the patient's lab results. 09/01/22 04:46 09/01/22 04:46 Labs: Lab Results 09/01/22 09/01/22 09/01/22 Range/Units 04:46 04:46 04:46 WBC 9.5 (4.8-10.8) X10*3/uL RBC 5.66 (4.60-5.80) X10*6/uL Hgb 15.1 (14.0-18.0) g/dl Hct 45.3 (42.0-52.0) % MCV 80.0 (80.0-98.0) fL MCH 26.7 L (27.0-33.0) pg MCHC 33.3 (31.0-36.0) g/dl RDW 13.3 (11.0-16.0) % Plt Count 294 (160-400) X10*3/uL MPV 10.2 (9.4-12.4) fL Immature Gran % (Auto) 0.3 (0.0-0.4) % Neut % (Auto) 81.7 H (45-73) % Lymph % (Auto) 9.8 L (20-40) % [place] % (Auto) 7.6 (2-11) % Eos % (Auto) 0.5 (0-4) % Baso % (Auto) 0.1 (0-2) % Lymph # (Auto) 0.9 L (1.2-4.9) X10*3/uL [place] # (Auto) 0.7 (0.1-1.2) X10*3/uL Eos # (Auto) 0.1 (0.0-0.4) X10*3/uL Baso # (Auto) 0.0 (0.0-0.2) X10*3/uL Abs Immat Gran (auto) 0.03 (0.00-0.03) X10*3/uL Absolute Neuts (auto) 7.8 (2.0-8.3) x10*3/uL Absolute Nucleated RBC 0.000 (0.0-0.012) X10*3/uL Nucleated RBC % (auto) 0.0 (0.0-0.2) /100WBC Sodium 139 (135-145) mmol/L Potassium 4.3 (3.3-5.1) mmol/L Chloride 105 (96-108) mmol/L Carbon Dioxide 25 (22-29) mmol/L Anion Gap 13 (12-20) BUN 9 (9-16) mg/dL Creatinine 0.81 (0.5-1.4) mg/dL Estim Creat Clear Calc 161.8 Estimated GFR > 60 Random Glucose 130 H (60-115) mg/dL Calcium 9.9 (8.4-10.2) mg/dL Total Bilirubin 0.9 (0.0-1.0) mg/dL AST 22 (5-37) U/L ALT 37 (0-40) U/L Alkaline Phosphatase 49 (39-117) U/L Troponin I High Sens < 2.7 (<3.5-35.0) ng/L Total Protein 7.3 (6.5-8.0) g/dL Albumin 4.7 (3.5-5.0) g/dL Lipase 13 (8-78) U/L COVID-19 ([facility]) (Negative) COVID-19 Clin Com Influenza Type A ([facility]) (Negative) Influenza Type B ([facility]) (Negative) Influenza A & B Note 09/01/22 09/01/22 Range/Units 04:46 04:46 WBC (4.8-10.8) X10*3/uL RBC (4.60-5.80) X10*6/uL Hgb (14.0-18.0) g/dl Hct (42.0-52.0) % MCV (80.0-98.0) fL MCH (27.0-33.0) pg MCHC (31.0-36.0) g/dl RDW (11.0-16.0) % Plt Count (160-400) X10*3/uL MPV (9.4-12.4) fL Immature Gran % (Auto) (0.0-0.4) % Neut % (Auto) (45-73) % Lymph % (Auto) (20-40) % [place] % (Auto) (2-11) % Eos % (Auto) (0-4) % Baso % (Auto) (0-2) % Lymph # (Auto) (1.2-4.9) X10*3/uL [place] # (Auto) (0.1-1.2) X10*3/uL Eos # (Auto) (0.0-0.4) X10*3/uL Baso # (Auto) (0.0-0.2) X10*3/uL Abs Immat Gran (auto) (0.00-0.03) X10*3/uL Absolute Neuts (auto) (2.0-8.3) x10*3/uL Absolute Nucleated RBC (0.0-0.012) X10*3/uL Nucleated RBC % (auto) (0.0-0.2) /100WBC Sodium (135-145) mmol/L Potassium (3.3-5.1) mmol/L Chloride (96-108) mmol/L Carbon Dioxide (22-29) mmol/L Anion Gap (12-20) BUN (9-16) mg/dL Creatinine (0.5-1.4) mg/dL Estim Creat Clear Calc Estimated GFR Random Glucose (60-115) mg/dL Calcium (8.4-10.2) mg/dL Total Bilirubin (0.0-1.0) mg/dL AST (5-37) U/L ALT (0-40) U/L Alkaline Phosphatase (39-117) U/L Troponin I High Sens (<3.5-35.0) ng/L Total Protein (6.5-8.0) g/dL Albumin (3.5-5.0) g/dL Lipase (8-78) U/L COVID-19 ([facility]) Negative (Negative) COVID-19 Clin Com See Note Influenza Type A ([facility]) Negative (Negative) Influenza Type B ([facility]) Negative (Negative) Influenza A & B Note See Note Discharge Plan Discharge Clinical Impression: Gastroenteritis Patient Disposition: Home, Self-Care Instructions: Gastroenteritis (DC) Prescriptions: No Action No Known Home Meds
--- NOTE | 2022-09-01 05:03 | PC.NURSE ---
this rn assumed care of pt @ 0450. iv placed. ekg obtained, bloodwork obtained, and sent down to lab. pt placed on caridac monitor. pt resting on back on stretcher at this time
[2022-09-01 05:08] LABS: COVID-19 Test Negative (Negative); IDNOW Serial# 08D9AD1C; IDNOW Serial# BCCEAD1C; Influenza A Negative (Negative); Influenza B2 Negative (Negative)
[2022-09-01 05:14] LABS: Alanine Aminotransferase 37 U/L (0-40); Albumin Level 4.7 g/dL (3.5-5.0); Alkaline Phosphatase 49 U/L (39-117); Anion Gap 13 (12-20); Aspartate Amino Transferase 22 U/L (5-37); Bilirubin Total 0.9 mg/dL (0.0-1.0); Blood Urea Nitrogen 9 mg/dL (9-16); Calcium 9.9 mg/dL (8.4-10.2); Carbon Dioxide 25 mmol/L (22-29); Chloride 105 mmol/L (96-108); Creatinine Clr Calc Pharmacy 161.8; Estimated Glomerular Filt Rate > 60; Glucose Random 130 mg/dL (60-115); Lipase 13 U/L (8-78); Potassium 4.3 mmol/L (3.3-5.1); Sodium 139 mmol/L (135-145); Total Protein 7.3 g/dL (6.5-8.0); Troponin-I High Sensitivity < 2.7 ng/L (<3.5-35.0)
[2022-09-01] MEDS: ondansetron HCL 4 MG/2 ML VIAL IVPUSH (05:23)
[2022-09-01] MEDS: 0.9 % Sodium Chloride 1,000 ML 999 ML IV (05:23)
--- NOTE | 2022-09-01 05:27 | PC.NURSE ---
pt medicated according to mar. pt father at bedside. pt awaiting to be taken to ct
[2022-09-01] MEDS: iohexoL 350 MG/ML 100 ML INFUS..BTL 85 ML IV (05:39)
[2022-09-01 05:57] VITALS: BP 138/72; PULSE 64; RESP 19; TEMP 37.2; O2SAT 97
--- NOTE | 2022-09-01 07:11 | PC.NURSE ---
iv removed at discharge. discharge packet and work note provided to pt. ambulatory at discharge. pt discharged with father
== END 2022-09-01 07:13 | disposition home or self-care (01) ==
PROVIDERS: Emergency Provider Internal Medicine; PCP Registered Nurse
DX: K52.9 Noninfective gastroenteritis and colitis, unspecified (principal); R06.02 Shortness of breath; R11.2 Nausea with vomiting, unspecified; Z20.822 Contact with and (suspected) exposure to COVID-19; Z20.828 Contact with and (suspected) exposure to other viral communicable diseases; Z79.899 Other long term (current) drug therapy
CPT/HCPCS: 36415; 74177; 80053; 83690; 84484; 85025; 87502; 87635; 93005; 96374; 99284; 99285; J2405; Q9967

== ENCOUNTER 2023-10-28 20:45 | Emergency (ER) | payer OTHER, SELFPAY ==
--- NOTE | ~2023-10-28 | XR_ITS ---
EXAMINATION: XR ANKLE, RIGHT CLINICAL INFORMATION: Pain status post injury. COMPARISON: None available. TECHNIQUE: AP, lateral, and mortise views of the right ankle. FINDINGS: No fracture. Alignment is anatomic. No erosions. Joint spaces are maintained. There is significant soft tissue swelling over the lateral malleolus. XR/XR ankle RT min 3V IMPRESSION: No fracture or dislocation is identified. There is, however, significant soft tissue swelling over the lateral malleolus. Ligamentous/tendinous injury cannot be excluded.
[2023-10-28 21:00] VITALS: BP 145/81; PULSE 83; RESP 16; TEMP 37.2; O2SAT 96; BMI 29.6
--- NOTE | 2023-10-28 21:33 | PC.NURSE ---
Pt ca&ox4, no signs of distress. Pt reports 12/29 right ankle pain d/t landing on it wrong while playing basketball Swelling noted right ankle. Pt reports no meds taken since injury. Pts family at bedside. Plan of care ongoing.
[2023-10-28 21:59] VITALS: BP 135/83; PULSE 75; RESP 18; TEMP 36.7; O2SAT 95
--- NOTE | 2023-10-28 23:15 | ED.LOWEXIN ---
HPI - Extremity Injury (Lower) General Chief Complaint: Extremity Injury, Lower Stated Complaint: right ankle inj Time Seen by Provider: 10/28/23 22:39 Source: patient and family Mode of arrival: ambulatory History of Present Illness ED Provider: Dr Duong HPI Narrative: 23-year-old male with history of playing basketball and states that he came down wrong on his foot and rolled his right ankle with immediate pain and swelling and inability to bear weight immediately afterwards. Related Data Previous Rx's ?Medication ?Instructions ?Recorded ondansetron 4 mg disintegrating 4 mg PO Q6-8H PRN nausea and 09/01/22 tablet vomiting #7 tabs Allergies Allergy/AdvReac Type Severity Reaction Status Date / Time No Known Allergies Allergy Verified 10/28/23 21:02 Review of Systems Review of Systems: Pertinent positives and negatives as stated in [facility] Past Medical History Source: nursing notes reviewed Medical History No known health problems Social History Social History Smoked in Last 30 Days: No Use of substances other than those prescribed or required for medical reasons: No Advance Directives: No Advance Directives Information Provided: No Physical Exam Vital Signs: Vital Signs: Last Vital Signs Temp 98.0 F 10/28/23 23:37 Pulse 75 10/28/23 23:37 Resp 18 10/28/23 23:37 BP 135/83 10/28/23 23:37 Pulse Ox 95 10/28/23 23:37 O2 Del Method Room Air 10/28/23 23:37 BMI result Body Mass Index 29.6 VITAL SIGNS: Reviewed. GENERAL: Well developed, well nourished, in no acute distress. HEAD: Normocephalic/atraumatic EYES: PERRLA, EOMI EARS: Ext canals without abnormality NOSE: Nares patent bilateral OROPHARYNX: no oral lesions noted, posterior pharynx clear NECK: Supple, no adenopathy LUNGS: Normal breath sounds. No adventitious sounds or accessory muscle use. SpO2<95> CARDIOVASCULAR: Regular rate and rhythm without noted murmurs ABDOMEN: Soft, non-tender, non-distended with bowel sounds. MUSCULOSKELETAL: No tenderness, deformities, or effusions noted on gross inspection. EXTREMITIES: No cyanosis, clubbing or edema. RIGHT ANKLE: Significant swelling over the lateral malleolus, mild swelling over the medial malleolus, no midfoot pain, mild bruising noted extending from the lateral malleolus across the lateral portion of the foot SKIN: Inspection of the skin reveals no rashes NEUROLOGIC: Alert and oriented x 4. Strength and sensation to light touch were grossly intact x 4. Medications Administered Discontinued Medications Generic Name Dose Route Start Last Admin Trade Name Freq PRN Reason Stop Dose Admin Acetaminophen 975 mg 10/28/23 23:15 10/28/23 23:21 Acetaminophen 325 Mg Tablet PO 10/28/23 23:16 975 mg ONCE ONE Administration Ibuprofen 400 mg 10/28/23 23:15 10/28/23 23:21 Ibuprofen 400 Mg Tablet PO 10/28/23 23:16 400 mg ONCE ONE Administration Medical Decision Making Medical Decision Making MDM Narrative: 23-year-old male with history and clinical presentation, DDX: Fracture, dislocation, sprain I reviewed x-rays which are negative for fracture or dislocation but identify significant soft tissue swelling, Yury wrap placed, crutches were provided as well as combination analgesics and patient was given instructions to maintain mobility as much as possible and given a modified work note. Differential Diagnosis Differential Diagnoses: The differential diagnosis associated with the presentation includes Please see the discussion above Admission/Observation Consideration of admission/observation: Escalation of care including admission/observation considered Please see the discussion above Radiology Impression Discussion of test interpretation with radiology: I have reviewed the radiologist's reading. Radiologist Impression: Please see the discussion above Discharge Plan Discharge Clinical Impression: Right ankle sprain Patient Disposition: Home, Self-Care Instructions: Ankle Sprain (ED), Crutch Instructions (ED), R.I.C.E. Treatment (ED), Ice Pack Application (ED) Additional Instructions: 1. Recommend [id number] Tylenol/ibuprofen as needed for pain control. Elevation and ice application are going to be important. 2. Weight-bearing as tolerated, gentle exercises to maintain mobility. Return to the ER for any worsening symptoms. Prescriptions: No Action ondansetron 4 mg tablet,disintegrating 4 mg PO Q6-8H PRN (Reason: nausea and vomiting) Qty: 7 0RF Referrals: Balbina Bullard MD [Primary Care Provider] - Stand Alone Forms: Work/School Release Interventions: ED Discharge Assessment Last Done: 10/28/23 23:37 Discharge Date/Time: 10/28/23 23:40 Print Language: [place]
[2023-10-28] MEDS: Ibuprofen 400 MG TABLET PO (23:21)
[2023-10-28] MEDS: Acetaminophen 325 MG TABLET 975 MG PO (23:21)
--- NOTE | 2023-10-28 23:36 | PC.NURSE ---
Pt medicated per jul. Plan of care ongoing.
[2023-10-28 23:37] VITALS: BP 135/83; PULSE 75; RESP 18; TEMP 36.7; O2SAT 95
== END 2023-10-28 23:40 | disposition home or self-care (01) ==
PROVIDERS: Emergency Provider Student in an Organized Health Care Education/Training Program; PCP Student in an Organized Health Care Education/Training Program
DX: S93.401A Sprain of unspecified ligament of right ankle, initial encounter (principal); X50.1XXA Overexertion from prolonged static or awkward postures, initial encounter; Y93.67 Activity, basketball; Y92.310 Basketball court as the place of occurrence of the external cause; Y99.9 Unspecified external cause status
CPT/HCPCS: 73610; 99283; 99284

== ENCOUNTER 2023-11-07 12:20 | Outpatient (REF) | payer OTHER, SELFPAY ==
--- NOTE | ~2023-11-07 | US_ITS ---
EXAMINATION: US VENOUS ULTRASOUND WITH DOPPLER LOWER EXTREMITY, RIGHT CLINICAL INFORMATION: Sprained ankle with leg edema COMPARISON: Ankle X-ray of 10/28/2023 TECHNIQUE: Ultrasound of the deep veins is performed from the hip to the calf with compression sonography and color and pulse Doppler assessment. Spectral analysis with color-flow imaging is performed. FINDINGS: There is normal venous compression and respiratory variation and augmented flow. The visualized common femoral vein, superficial femoral vein, profunda femoral vein, popliteal vein, and the trifurcation region shows no evidence of deep venous thrombosis. There is no significant popliteal fossa cyst. US/US venous duplex LE RT IMPRESSION: No DVT demonstrated in the right lower extremity.
== END 2023-11-07 12:21 | disposition home or self-care (01) ==
LOC: HO.US 12:20
PROVIDERS: PCP Student in an Organized Health Care Education/Training Program; Visit Provider Student in an Organized Health Care Education/Training Program
DX: M25.571 Pain in right ankle and joints of right foot (principal); R60.0 Localized edema
CPT/HCPCS: 93971

== ENCOUNTER → 2023-11-21 14:31 | Outpatient (REF) | payer OTHER, SELFPAY ==
--- NOTE | ~2023-11-21 | MR_ITS ---
EXAMINATION: MR ANKLE WITHOUT CONTRAST, RIGHT CLINICAL INFORMATION: Right ankle pain. COMPARISON: Radiographs 10/28/2023 TECHNIQUE: MRI of the ankle was performed using routine sequences on a high-field scanner. FINDINGS: There is a high-grade sprain of the anterior talofibular ligament, nearly completely torn from the talar attachment. Thickening/sprain of the calcaneofibular ligament. Mild edema also of the anterior syndesmosis without a discrete tear. Deep deltoid ligament edema likely due to a contusion, with impaction bone bruise/microfracture to the medial aspect of the navicular as well as the sustentaculum talus of the calcaneus. There is an impaction injury/microfracture of the lateral talar dome. There is a 1-2 mm displaced chondral fragment. Small ankle joint effusion. The Achilles tendon, posterior tibialis tendon, peroneal tendons, flexor and extensor tendons appear intact. Mild posterior tibial tenosynovitis. The plantar fascia is intact. Contusion/microfracture at the medial aspect of the proximal cuboid, at the calcaneocuboid joint. Small avulsion fracture at the base of the 5th metatarsal at the insertion of the peroneal brevis tendon and contusion/avulsive related marrow edema at the adjacent posterolateral cuboid. Mild marrow edema at the plantar aspect of the 4th TMT joint which is likely posttraumatic as well. The Lisfranc ligament appears intact. MR/MR ankle RT wo con IMPRESSION: 1. High-grade anterior talofibular ligament sprain. Relatively mild sprains of the calcaneofibular, deltoid, and anterior tibiofibular ligaments. 2. Impaction bone bruise/microfracture of the lateral talar dome with a 1-2 mm displaced chondral fragment. Small ankle joint effusion. 3. Small avulsion fracture at the base of the 5th metatarsal at the insertion of the peroneal brevis tendon. Contusion/avulsive related marrow edema at the adjacent posterolateral cuboid. 4. Contusion/microfractures of the cuboid, medial navicular, and sustentaculum talus of the calcaneus. 5. Mild posterior tibial tenosynovitis.
== END | disposition home or self-care (01) ==
LOC: HO.MRI
PROVIDERS: PCP Student in an Organized Health Care Education/Training Program; Visit Provider Student in an Organized Health Care Education/Training Program
DX: M25.571 Pain in right ankle and joints of right foot (principal)
CPT/HCPCS: 73721

== ENCOUNTER 2023-11-29 10:55 | Outpatient (AMB) | payer MEDICAID, SELFPAY ==
--- NOTE | 2023-11-29 10:58 | MHC.OFFVIS ---
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 Patient reports he was playing basketball when he jumped up and landed on feet and his ankle buckled. He was referred by his PCP, MRI done as well as an US due to his swelling. Currently he has discomfort at the lateral aspect of ankle. Denies numbness or tingling. 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 He was seen by his PCP who ordered an MRI and US, and referred him to our office. He currently states he has discomfort at the lateral aspect of his ankle. He denies any numbness or tingling. He wears an ankle brace that provides him support. 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 Review of Systems Const All systems reviewed & are unremarkable except as noted in HPI and below Physical Exam Vital Signs: BMI result Body Mass Index 29.6 Const General: cooperative, healthy appearing, comfortable, no acute distress, well developed and alert Orientation/consciousness: patient oriented x3 HEENT Head: Yes normal to inspection, Yes normocephalic and Yes atraumatic Eyes General: appearance normal, both eyes and all related structures Resp Effort & Inspection: normal respiratory effort and able to speak in complete sentences Cardio Rate: regular rate Peripheral pulses: Peripheral pulses 2+ throughout GI Palpation (GI): Soft to palpation Skin Lesions: no lesions Rashes: no rashes Neuro General: patient oriented x3 Extrem Other: Right ankle: Normal to inspection with mild swelling over the medial and lateral malleolus with tenderness along the soft tissues. No discomfort along the posterior aspect of the ankle, no deformity along the Achilles tendon, negative Alford?s. No pain along the syndesmosis or anterior tibia. No laxity, NVI. Results Reviewed Results Reviewed: XR ankle RT min 3V IMPRESSION: No fracture or dislocation is identified. There is, however, significant soft tissue swelling over the lateral malleolus. Ligamentous/tendinous injury cannot be excluded. MRI IMPRESSION: 1. High-grade anterior talofibular ligament sprain. Relatively mild sprains of the calcaneofibular, deltoid, and anterior tibiofibular ligaments. 2. Impaction bone bruise/microfracture of the lateral talar dome with a 1-2 mm displaced chondral fragment. Small ankle joint effusion. 3. Small avulsion fracture at the base of the 5th metatarsal at the insertion of the peroneal brevis tendon. Contusion/avulsive related marrow edema at the adjacent posterolateral cuboid. 4. Contusion/microfractures of the cuboid, medial navicular, and sustentaculum talus of the calcaneus. 5. Mild posterior tibial tenosynovitis. Assessment & Plan Assessment & Plan (1) Right ankle sprain: Code(s): S93.401A - Sprain of unspecified ligament of right ankle, initial encounter Category: Medical Plan We discussed options which include PT, NSAIDs and bracing. The patient will proceed with PT and NSAIDs. If symptoms persist, he will contact me, otherwise he will see me back in 6-8 weeks, sooner if needed. Patient Instructions: Scribed for Sita Joiner PA-C, by Shahriar Jean Baptiste certified medical coding specialist, on 11/29/2023 at 11:00 AM EST.? I, Sita Joiner PA-C, have personally reviewed and agree with the information entered by the scribe. Coding Level of Care Code New Pt Level 3 (36842) Diagnoses Right ankle sprain S93.401A
[2023-11-29 11:26] VITALS: BMI 29.6
== END 2023-11-29 11:56 | disposition home or self-care (01) ==
PROVIDERS: PCP Student in an Organized Health Care Education/Training Program; Visit Provider Physician Assistant
DX: S93.401A Sprain of unspecified ligament of right ankle, initial encounter (principal)
CPT/HCPCS: 99203

== ENCOUNTER → 2023-11-29 10:55 | Outpatient (BNVA) | payer OTHER, SELFPAY | PROVIDERS: PCP Student in an Organized Health Care Education/Training Program; Visit Provider Physician Assistant | DX: S93.401A Sprain of unspecified ligament of right ankle, initial encounter (principal) | CPT/HCPCS: 99212 ==

== ENCOUNTER 2024-05-31 09:28 | Outpatient (REF) | payer SELFPAY ==
[2024-05-31 11:51] LABS: Hemoglobin 15.9 g/dl (14.0-18.0); Mean Corpuscular HGB Conc 33.8 g/dl (31.0-36.0); Mean Corpuscular Hemoglobin 27.7 pg (27.0-33.0); Mean Platelet Volume 10.5 fL (9.4-12.4); Platelet Count 354 X10*3/uL (160-400); Red Blood Count 5.73 X10*6/uL (4.60-5.80); Red Cell Distribution Width 13.1 % (11.0-16.0); White Blood Count 8.7 X10*3/uL (4.8-10.8)
[2024-05-31 12:01] LABS: Estimated Average Glucose 105 mg/dL; Hemoglobin A1C 141.6225 umol/L; Hemoglobin A1c % 5.3 % (<6.0); Total Hemoglobin (HGBA1C) 4061.3094 umol/L
[2024-05-31 12:06] LABS: Appearance Urine Clear; Color Urine Yellow; Glucose Urine UA Negative (Negative); Leukocyte Esterase Urine Negative (Negative); Nitrite Urine Negative (Negative); PH 5.5 (5.0-9.0); Specific Gravity - Urine 1.025 (1.005-1.025); Urine Blood Negative (Negative); Urine Ketones Negative (Negative); Urine Protein Negative (Neg-Trace)
[2024-05-31 12:10] LABS: Bacteria Urine None Seen (None Seen); Hyaline Casts Urine 0-2 /LPF (0-2); RBC Urine 0-2 /HPF (0-2); Squamous Epithelial Cell Urine 0-2 /HPF (0-2); WBC Urine 0-5 /HPF (0-5)
[2024-05-31 12:16] LABS: Creatinine Urine 250.48 mg/dL; Microalbum/Creatinine Ratio Ur 3.5 ug/mg cr (<30)
[2024-05-31 12:19] LABS: Syphilis Screen Nonreactive (Nonreactive)
[2024-05-31 12:26] LABS: HBc Num1 0.11 S/CO (0.00-0.79); HBsAGNum1 0.52 S/CO (0.00-0.99); HIV AB/AG Nonreactive (Nonreactive); HIV Num 1 0.05 S/CO (0.00-0.99); Hepatitis B Core Antibody Nonreactive (Nonreactive); Hepatitis B Surface Antigen Negative (Negative); ~HepC Num1 0.08 S/CO (0.00-0.79); ~Hepatitis B Surface Antibody REACTIVE (Nonreactive); ~Hepatitis C Antibody Nonreactive (Nonreactive)
[2024-05-31 12:32] LABS: Alanine Aminotransferase 43 U/L (0-40); Albumin Level 4.7 g/dL (3.5-5.0); Alkaline Phosphatase 47 U/L (39-117); Anion Gap 9 (12-20); Aspartate Amino Transferase 26 U/L (5-37); Bilirubin Total 0.4 mg/dL (0.0-1.0); Blood Urea Nitrogen 11 mg/dL (9-16); Calcium 9.8 mg/dL (8.4-10.2); Carbon Dioxide 30 mmol/L (22-29); Chloride 109 mmol/L (96-108); Cholesterol 138 mg/dL (<200); Estimated Glomerular Filt Rate > 60; Glucose Random 89 mg/dL (60-115); HDL Cholesterol 46 mg/dL (>40); LDL Cholesterol Calculated 84 mg/dL (<100); Potassium 4.2 mmol/L (3.3-5.1); Sodium 144 mmol/L (135-145); TSH reflex Free T4 1.26 uIU/mL (0.32-4.0); Total Protein 7.8 g/dL (6.5-8.0); Triglycerides 41 mg/dL (<150)
[2024-05-31 13:14] LABS: CT PCR NOT DETECTED (Not Detect.); NG PCR NOT DETECTED (Not Detect.)
== END 2024-05-31 09:29 | disposition home or self-care (01) ==
LOC: HO.HHCL 09:28
PROVIDERS: Emergency Medicine; Visit Provider Student in an Organized Health Care Education/Training Program
DX: Z00.00 Encounter for general adult medical examination without abnormal findings (principal); R03.0 Elevated blood-pressure reading, without diagnosis of hypertension; Z11.3 Encounter for screening for infections with a predominantly sexual mode of transmission; Z11.59 Encounter for screening for other viral diseases; Z72.89 Other problems related to lifestyle
CPT/HCPCS: 36415; 80053; 80061; 81001; 82043; 82570; 83036; 84443; 85027; 86704; 86706; 86780; 86803; 87340; 87389; 87491; 87591

== ENCOUNTER 2024-06-25 19:55 | Emergency (ER) | payer OTHER, SELFPAY ==
--- NOTE | ~2024-06-25 | CT_ITS ---
CLINICAL HISTORY: ?appy CT abdomen and pelvis with contrast Comparison: CT - CT ABDOMEN PELVIS W IV CON - 09/01/22 05:34 EDT Findings: No consolidation or effusion. The gallbladder and solid organs are within normal limits. No hydronephrosis or hydroureter. No bowel obstruction, pneumoperitoneum, or pneumatosis. Small volume fluid identified within the lumen of the colon and rectum. Multiple fluid-filled loops of nondilated small bowel are also present throughout the abdomen. There may be mild mucosal hyperemia at these sites. Pelvic contents unremarkable. No bladder wall thickening. Normal appendix. No acute fracture visualized. IMPRESSION: 1. Multiple fluid-filled loops of nondilated small and large bowel present throughout the abdomen with small volume fluid in the rectal lumen, suggesting diarrhea. There may be mild mucosal hyperemia at these sites in the setting of a mild nonspecific enterocolitis. No bowel obstruction. Normal appendix. This document has been electronically signed by: Tyler Yeung MD on 06/26/2024 01:23:16
[2024-06-25 20:20] VITALS: BP 130/82; PULSE 89; RESP 18; TEMP 36.4; O2SAT 99; BMI 29.5
--- NOTE | 2024-06-25 20:23 | ED.ABDPAIN ---
HPI - Abdominal Pain General Chief Complaint: Abdominal Pain Stated Complaint: Flu like symptoms Time Seen by Provider: 06/25/24 23:39 Source: patient Mode of arrival: ambulatory Limitations: no limitations History of Present Illness ED Provider: HPI narrative: Patient otherwise healthy started having mid abdominal pain around 20:00 with nausea vomiting and diarrhea vomited about 4 times and had 2 times loose bowels no fever no chills had taco earlier in the evening no other family member sick Related Data Home Medications ?Medication ?Instructions ?Recorded ?Confirmed lisinopril 10 mg tablet 10 mg PO QAM 11/29/23 Previous Rx's ?Medication ?Instructions ?Recorded ondansetron 4 mg disintegrating 4 mg PO Q6-8H PRN nausea and 09/01/22 tablet vomiting #7 tabs ondansetron 4 mg disintegrating 4 mg PO Q6-8H PRN nausea and 06/26/24 tablet vomiting #7 tabs Allergies Allergy/AdvReac Type Severity Reaction Status Date / Time No Known Allergies Allergy Verified 06/25/24 20:22 Review of Systems Review of Systems Yes all other systems are reviewed and are negative PMFSH Past Medical History Medical History No known health problems Social History Social History Patient Tobacco Use Status: Never used Tobacco Advance Directives: No Advance Directives Information Provided: No Current occupational status: employed 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 Oriented X3. In moderate distress Eyes: No pallor or icterus ENT: Pharynx normal. Oral Mucosa moist Neck: Normal inspection. Neck supple. CVS: Normal heart rate and rhythm. Pulses normal. Respiratory: No respiratory distress. Equal air entry bilateral, no wheezing/rales/rhonchi Abdomen: Soft and tenderness right lower quadrant with guarding no rebound tenderness. Bowel sounds are present, no mass palpable, no CVA tenderness Skin: Skin warm and dry. Normal skin color. Normal skin turgor. Extremities: No lower extremity edema. No calf tenderness Neuro: Oriented X 3. No motor deficit. Course Course Course Narrative: This is a Rapid Medical Examination (RME) performed by Macie Slater PA-C in triage. Full HPI, ROS, assessment and treatment plan per primary provider in the Main ED. 24 yo male here for eval of epigastric abd pain, N/V x6 days. assoc chills, dizziness, and generalized weakness since 1900 today. 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 + pale appearing, actively vomiting Plan: labs, viral swabs. zofran given. Medical Decision Making Medical Decision Making [facility] Narrative: Patient with acute gastroenteritis after eating taco CT scan negative for appendicitis patient is feeling much better now taking p.o. fluids will discharge patient home on supportive system Differential Diagnosis Differential Diagnoses: The differential diagnosis associated with the presentation includes Colitis/ Lab Data [facility] Lab Attestation statement: I reviewed the patient's lab results. 06/25/24 21:01 06/25/24 21:01 Labs: Lab Results 06/25/24 Range/Units 21:01 WBC 15.1 H (4.8-10.8) X10*3/uL RBC 5.97 H (4.60-5.80) X10*6/uL Hgb 16.6 (14.0-18.0) g/dl Hct 48.6 (42.0-52.0) % MCV 81.4 (80.0-98.0) fL MCH 27.8 (27.0-33.0) pg MCHC 34.2 (31.0-36.0) g/dl RDW 13.0 (11.0-16.0) % Plt Count 383 (160-400) X10*3/uL MPV 10.2 (9.4-12.4) fL Immature Gran % (Auto) 0.4 (0.0-0.4) % Neut % (Auto) 85.7 H (45-73) % Lymph % (Auto) 6.1 L (20-40) % Wirt % (Auto) 6.8 (2-11) % Eos % (Auto) 0.7 (0-4) % Baso % (Auto) 0.3 (0-2) % Lymph # (Auto) 0.9 L (1.2-4.9) X10*3/uL Wirt # (Auto) 1.0 (0.1-1.2) X10*3/uL Eos # (Auto) 0.1 (0.0-0.4) X10*3/uL Baso # (Auto) 0.0 (0.0-0.2) X10*3/uL Abs Immat Gran (auto) 0.06 H (0.00-0.03) X10*3/uL Absolute Neuts (auto) 13.0 H (2.0-8.3) x10*3/uL Absolute Nucleated RBC 0.000 (0.0-0.012) X10*3/uL Nucleated RBC % (auto) 0.0 (0.0-0.2) /100WBC Sodium 144 (135-145) mmol/L Potassium 3.9 (3.3-5.1) mmol/L Chloride 104 (96-108) mmol/L Carbon Dioxide 23 (22-29) mmol/L Anion Gap 21 H (12-20) BUN 12 (9-16) mg/dL Creatinine 0.88 (0.5-1.4) mg/dL Estim Creat Clear Calc 144.0 Estimated GFR > 60 Random Glucose 119 H (60-115) mg/dL Calcium 10.2 (8.4-10.2) mg/dL Magnesium 1.9 (1.6-2.6) mg/dL Total Bilirubin 0.4 (0.0-1.0) mg/dL AST 24 (5-37) U/L ALT 44 H (0-40) U/L Alkaline Phosphatase 50 (39-117) U/L Total Protein 8.7 H (6.5-8.0) g/dL Albumin 5.1 H (3.5-5.0) g/dL Lipase 16 (8-78) U/L Influenza Type A (PCR) NEGATIVE (Negative) Influenza Type B (PCR) NEGATIVE (Negative) RSV RNA Qual (PCR) NEGATIVE (Negative) SARS-CoV-2 RNA (RT-PCR) NEGATIVE (Negative) S. pyogenes GrpA ELIESER Negative (Negative) Independent Interpretation I performed an independent interpretation of an: CT Scan Radiology Impression Discussion of test interpretation with radiology: I have reviewed the radiologist's reading. Radiologist Impression: [address] [address] [address] Scan Report Signed Patient: Paddy Sampson MR#: [id number] : 2000 Acct:[id number] Age/Sex: 24 / M ADM Date: 06/25/24 Loc: HO.ED Attending Dr: Ordering Physician: Kristian Wisdom MD Date of Service: 06/26/24 Procedure(s): CT abdomen pelvis w IV con Accession Number(s): [id number] cc: Balbina Bullard MD; Kristian Wisdom MD~ Report Number: [id number]: Total DLP = 697.00 mGy-cm CLINICAL HISTORY: ?appy CT abdomen and pelvis with contrast Comparison: CT - CT ABDOMEN PELVIS W IV CON - 09/01/22 05:34 EDT Findings: No consolidation or effusion. The gallbladder and solid organs are within normal limits. No hydronephrosis or hydroureter. No bowel obstruction, pneumoperitoneum, or pneumatosis. Small volume fluid identified within the lumen of the colon and rectum. Multiple fluid-filled loops of nondilated small bowel are also present throughout the abdomen. There may be mild mucosal hyperemia at these sites. Pelvic contents unremarkable. No bladder wall thickening. Normal appendix. No acute fracture visualized. IMPRESSION: 1. Multiple fluid-filled loops of nondilated small and large bowel present throughout the abdomen with small volume fluid in the rectal lumen, suggesting diarrhea. There may be mild mucosal hyperemia at these sites in the setting of a mild nonspecific enterocolitis. No bowel obstruction. Normal appendix. This document has been electronically signed by: Tyler Yeung MD on 06/26/2024 01:23:16 Medications Administered Discontinued Medications Generic Name Dose Route Start Last Admin Trade Name Freq PRN Reason Stop Dose Admin Diphenhydramine HCl 50 mg 06/25/24 22:06/25/24 22:13 Diphenhydramine Hcl 50 Mg/Ml Vial IVPUSH 06/25/24 22:06 50 mg ONCE ONE Administration Famotidine 20 mg 06/25/24 22:05 06/25/24 22:13 Famotidine/Pf 20 Mg/2 Ml Vial IVPUSH 06/25/24 22:06 20 mg ONCE ONE Administration Sodium Chloride 1,000 mls @ 999 mls/hr 06/25/24 22:05 06/25/24 22:13 Ns IVCONT 06/25/24 23:05 999 mls/hr .Q1H1M ONE Administration Iohexol 85 ml 06/26/24 00:37 06/26/24 00:37 Iohexol 350 Mg/Ml 100 Ml Infus..Btl IV 06/26/24 00:38 85 ml ONCE ONE Administration Metoclopramide HCl 10 mg 06/25/24 22:05 06/25/24 22:13 Metoclopramide Hcl 10 Mg/2 Ml Vial IVPUSH 06/25/24 22:06 10 mg ONCE ONE Administration Ondansetron HCl 4 mg 06/25/24 20:22 06/25/24 20:25 Ondansetron Odt 4 Mg Tab.Rapdis TRANSLINGU 06/25/24 20:23 4 mg ONCE ONE Administration Discharge Plan Discharge Clinical Impression: Gastroenteritis Patient Disposition: Home, Self-Care Instructions: Gastroenteritis (ED) Additional Instructions: Drink plenty of fluids Medicine for nausea as prescribed Likely have viral etiology for the diarrhea and vomiting which should get better in next 2-3 days Prescriptions: New ondansetron 4 mg tablet,disintegrating 4 mg PO Q6-8H PRN (Reason: nausea and vomiting) Qty: 7 0RF No Action ondansetron 4 mg tablet,disintegrating 4 mg PO Q6-8H PRN (Reason: nausea and vomiting) Qty: 7 0RF lisinopril 10 mg tablet 10 mg PO QAM Stand Alone Forms: Work/School Release Interventions: ED Discharge Assessment Last Done: 06/26/24 01:39 Print Language: Macedonian
[2024-06-25] MEDS: Ondansetron ODT 4 MG TAB.RAPDIS TRANSLINGU (20:25)
[2024-06-25 21:08] LABS: MANUAL DIFF FLAG NO
[2024-06-25 21:09] LABS: Basophils Percent Auto 0.3 % (0-2); Eosinophils Absolute Auto 0.1 X10*3/uL (0.0-0.4); Eosinophils Percent Auto 0.7 % (0-4); Hematocrit 48.6 % (42.0-52.0); Hemoglobin 16.6 g/dl (14.0-18.0); Imm Gran Abs Auto 0.06 X10*3/uL (0.00-0.03); Imm Gran Pct Auto 0.4 % (0.0-0.4); Lymphocytes Absolute Auto 0.9 X10*3/uL (1.2-4.9); Lymphocytes Percent Auto 6.1 % (20-40); Mean Corpuscular HGB Conc 34.2 g/dl (31.0-36.0); Mean Corpuscular Hemoglobin 27.8 pg (27.0-33.0); Mean Corpuscular Volume 81.4 fL (80.0-98.0); Mean Platelet Volume 10.2 fL (9.4-12.4); Monocytes Percent Auto 6.8 % (2-11); Neutrophils Percent Auto 85.7 % (45-73); Platelet Count 383 X10*3/uL (160-400); Red Blood Count 5.97 X10*6/uL (4.60-5.80); White Blood Count 15.1 X10*3/uL (4.8-10.8)
[2024-06-25 21:17] LABS: IDNOW Serial# 58CA691E; Strep A Nucleic Acid Negative (Negative)
[2024-06-25 21:23] LABS: Alanine Aminotransferase 44 U/L (0-40); Albumin Level 5.1 g/dL (3.5-5.0); Alkaline Phosphatase 50 U/L (39-117); Anion Gap 21 (12-20); Aspartate Amino Transferase 24 U/L (5-37); Bilirubin Total 0.4 mg/dL (0.0-1.0); Blood Urea Nitrogen 12 mg/dL (9-16); Calcium 10.2 mg/dL (8.4-10.2); Carbon Dioxide 23 mmol/L (22-29); Chloride 104 mmol/L (96-108); Estimated Glomerular Filt Rate > 60; Glucose Random 119 mg/dL (60-115); Lipase 16 U/L (8-78); Magnesium 1.9 mg/dL (1.6-2.6); Potassium 3.9 mmol/L (3.3-5.1); Sodium 144 mmol/L (135-145); Total Protein 8.7 g/dL (6.5-8.0)
[2024-06-25 21:45] LABS: Influenza A PCR NEGATIVE (Negative); Influenza B PCR NEGATIVE (Negative); Resp Syncy Virus RNA Qual PCR NEGATIVE (Negative); SARS COV2 PCR INHOUSE NEGATIVE (Negative)
[2024-06-25] MEDS: Metoclopramide HCl 10 MG/2 ML VIAL IVPUSH (22:13)
[2024-06-25] MEDS: 0.9 % Sodium Chloride 1,000 ML 999 ML IVCONT (22:13)
[2024-06-25] MEDS: diphenhydrAMINE HCL 50 MG/ML VIAL IVPUSH (22:13)
[2024-06-25] MEDS: Famotidine/PF 20 MG/2 ML VIAL IVPUSH (22:13)
[2024-06-25 23:11] VITALS: BP 146/82; PULSE 90; RESP 12; TEMP 36.7; O2SAT 97
[2024-06-26] MEDS: iohexoL 350 MG/ML 100 ML INFUS..BTL 85 ML IV (00:37)
[2024-06-26 01:39] VITALS: BP 127/74; PULSE 85; RESP 16; TEMP 36.9; O2SAT 100
== END 2024-06-26 01:47 | disposition home or self-care (01) ==
PROVIDERS: Physician Assistant Medical; Emergency Provider Internal Medicine; PCP Student in an Organized Health Care Education/Training Program
DX: K52.9 Noninfective gastroenteritis and colitis, unspecified (principal); R10.2 Pelvic and perineal pain; R11.2 Nausea with vomiting, unspecified; Z03.818 Encounter for observation for suspected exposure to other biological agents ruled out; Z79.899 Other long term (current) drug therapy
CPT/HCPCS: 0241U; 74177; 80053; 83690; 83735; 85025; 87651; 96361; 96374; 96375; 99284; J1200; J2765; Q9967

== ENCOUNTER → 2024-06-26 00:17 | Outpatient (BNV) | payer OTHER, SELFPAY | PROVIDERS: Emergency Provider Internal Medicine; PCP Student in an Organized Health Care Education/Training Program; Visit Provider Radiology Diagnostic Radiology | DX: R18.8 Other ascites (principal) | CPT/HCPCS: 74177 ==